=== PATIENT | male | born 1945 | race American Indian/Alaskan Native ===

== ENCOUNTER 2019-04-09 15:23 | Outpatient (CLI) | payer OTHER ==
--- NOTE | 2019-04-09 16:52 | Vascular Lab Report ---
DUPLEX DOPPLER LOWER EXTREMITY VEINS, LEFT INDICATION: M79.89) Other specified soft tissue disorders./M79.662)PAIN IN LO. TECHNIQUE: Duplex doppler imaging was performed through the veins of the left lower extremity using venous compr ession and other maneuvers. COMPARISON: None available. FINDINGS: Common Femoral vein: Negative. Superficial Femoral vein: Negative. Popliteal vein: Negative. Calf veins: Negative. Additional findings: The left arterial bypass graft appears to be occluded. IMPRESSION: 1. No sonographic evidence for DVT in the left lower extremity. Occluded bypass graft. Signer Name: Spike Grant MD Signed: 04/09/2019 4:47 PM Workstation Name: [id number]
== END 2019-04-09 15:24 | disposition home or self-care (01) ==
LOC: VAS 15:23
PROVIDERS: ATTEND Podiatrist Foot & Ankle Surgery
DX: M79.662 Pain in left lower leg (principal); R22.42 Localized swelling, mass and lump, left lower limb

== ENCOUNTER 2021-10-05 09:51 | Emergency (ER) | payer OTHER ==
[2021-10-05] MEDS ORDERED: IBUPROFEN 800 MG TAB PO ONE (10:34)
--- NOTE | 2021-10-05 10:55 | XRay Report ---
RIGHT SHOULDER 3 VIEWS INDICATION: pain sp fall. COMPARISON: None. IMPRESSION: Anterior, inferior dislocation is present at the glenohumeral joint. No obvious fracture . Moderate osteoarthritic changes are noted. RIGHT HUMERUS 2 VIEWS INDICATION: pain sp fall. COMPARISON: None. IMPRESSION: Dislocation at the right shoulder is again noted. No acute humeral injury is appreciate d. Signer Name: Bharathi Rosado Jr, MD Signed: 10/05/2021 10:50 AM Workstation Name: [id number]
--- NOTE | 2021-10-05 10:57 | Event Note ---
ED Screening Note ED Screening Note: sp fall in garage last night This initial assessment/diagnostic orders/clinical plan/treatment(s) is/are s ubject to change based on patients health status, clinical progression and re- assessment by fellow clinical providers in the ED. Further treatment and workup at subsequent clinical providers discretion. Patient/guardian urged not to elope from the ED as their condition may be serious if not clinically assessed and managed. Initial orders include: xr
[2021-10-05] MEDS ORDERED: ONDANSETRON 4 MG/2 ML INJ IV ONE (11:45)
[2021-10-05] MEDS ORDERED: fentaNYL 100 MCG/2 ML INJ IV ONE (11:45)
[2021-10-05] MEDS ORDERED: propofoL 200 MG/20 ML VIAL IV ONE (12:12)
[2021-10-05] MEDS ORDERED: KETAMINE 500 MG/5 ML VIAL MDV IV ONE (12:12)
--- NOTE | 2021-10-05 12:13 | Emergency Department Report ---
ED Upper Extremity Inj HPI - General Chief Complaint: Extremity Injury, Upper Stated Complaint: FELL HURT LF SHOULDER Time Seen by Provider: 10/05/21 10:19 Source: patient Mode of arrival: Ambulatory Limitations: No Limitations - History of Present Illness Initial Comments: 76-year-old male with a past medical history of hypertension (intimately complia nt with medication), DVT currently on Coumadin, hepatitis B, previous appendectomy presents to the hospital complaining of pain to right shoulder since fall last night. Patient tripped and fell in his garage landing with his right shoulder. Patient had pain and deformity limited movement since. Pain is currently 10/10 intensity, constant, worse movement palpation. Patient is right-hand dominant. Patient denies previous adverse reaction to sedative during surgery. Patient does not endorse head injury or LOC. HE does admit to alcohol intake last night - Related Data Home Medications Medication Instructions Recorded Confirmed Last Taken Ibuprofen/Diphenhydramine HCl 1 each PO PRN PRN 04/27/13 04/27/13 04/26/13 [Advil Pm Liqui-Gels] Previous Rx's Medication Instructions Recorded Last Taken Type HYDROcodone/APAP 5-325 [[place] 2 each PO Q6H PRN #40 tablet 04/28/13 Unknown Rx 5-325 mg TAB] HYDROcodone/APAP 5-325 [[place] 1 each PO Q6HR PRN #15 tablet 10/05/21 Unknown Rx 5/325] Allergies Allergy/AdvReac Type Severity Reaction Status Date / Time No Known Allergies Allergy Verified 10/05/21 10:15 ED Review of Systems ROS: Stated complaint: FELL HURT LF SHOULDER Other details as noted in HPI Comment: All other systems reviewed and negative ED Past Medical Hx - Past Medical History Hx Hypertension: Yes (not on meds) Hx Diabetes: No Hx Liver Disease: Yes (h/o hepatitis b) - Social History Smoking Status: Current Every Day Smoker - Medications Home Medications: Home Medications Medication Instructions Recorded Confirmed Last Taken Type Ibuprofen/Diphenhydramine HCl 1 each PO PRN PRN 04/27/13 04/27/13 04/26/13 History [Advil Pm Liqui-Gels] HYDROcodone/APAP 5-325 [[place] 2 each PO Q6H PRN #40 tablet 04/28/13 Unknown Rx 5-325 mg TAB] HYDROcodone/APAP 5-325 [[place] 1 each PO Q6HR PRN #15 tablet 10/05/21 Unknown Rx 5/325] ED Physical Exam - General Limitations: No Limitations - Other Other exam information: General: No acute distress Head: Atraumatic Eyes: normal appearance ENT: Moist mucous membranes Neck: Normal appearance, no midline tenderness Chest: Clear to auscultation bilaterally CV: Regular rate and rhythm Abdomen: Soft, normal bowel sounds, nontender, nondistended, no rebound or guarding Back: Normal inspection Extremity: Right arm deformity, limited movement, sensation intact, 2+ radial pulse Neuro: Alert O x 3, no facial asymmetry, speech clear, no gross motor sensory deficit Psych: Appropriate behavior Skin: No rash ED Course Vital Signs 10/05/21 10/05/21 10/05/21 10:21 13:00 13:35 Temperature 98.1 F Temperature [ Intra-Procedure ] Temperature [ 98.0 F Pre-Procedure] Pulse Rate 91 H Pulse Rate [ 94 H Intra-Procedure ] Pulse Rate [Pre 86 -Procedure] Respiratory 20 Rate Respiratory 8 L Rate [Intra- Procedure] Respiratory 18 Rate [Pre- Procedure] Blood Pressure 173/98 Blood Pressure 200/100 [Intra- Procedure] Blood Pressure [Left] Blood Pressure 165/105 [Pre-Procedure] O2 Sat by Pulse 95 Oximetry O2 Sat by Pulse 100 Oximetry [ Intra-Procedure ] O2 Sat by Pulse 100 Oximetry [Pre- Procedure] 10/05/21 10/05/21 10/05/21 13:55 14:04 14:18 Temperature Temperature [ 98.0 F Intra-Procedure ] Temperature [ 98.0 F Pre-Procedure] Pulse Rate Pulse Rate [ 88 94 H 92 H Intra-Procedure ] Pulse Rate [Pre 92 H -Procedure] Respiratory Rate Respiratory 12 8 L 11 L Rate [Intra- Procedure] Respiratory 11 L Rate [Pre- Procedure] Blood Pressure Blood Pressure 187/86 230/133 230/106 [Intra- Procedure] Blood Pressure [Left] Blood Pressure 203/114 [Pre-Procedure] O2 Sat by Pulse Oximetry O2 Sat by Pulse 99 98 Oximetry [ Intra-Procedure ] O2 Sat by Pulse 97 Oximetry [Pre- Procedure] 10/05/21 10/05/21 15:06 15:09 Temperature 98.6 F Temperature [ Intra-Procedure ] Temperature [ Pre-Procedure] Pulse Rate 88 Pulse Rate [ Intra-Procedure ] Pulse Rate [Pre -Procedure] Respiratory 18 Rate Respiratory Rate [Intra- Procedure] Respiratory Rate [Pre- Procedure] Blood Pressure Blood Pressure [Intra- Procedure] Blood Pressure 180/96 [Left] Blood Pressure [Pre-Procedure] O2 Sat by Pulse 99 100 Oximetry O2 Sat by Pulse Oximetry [ Intra-Procedure ] O2 Sat by Pulse Oximetry [Pre- Procedure] - Reevaluation(s) Reevaluation #1: 10/05/21 14:42 pain improved after reduction 10/05/21 14:55 Patient ready for discharge however, he does not have anyone to pick him up at this time after receiving moderate sedation. Patient can be safely discharged at 5 PM. Can be discharged sooner if he is able to secure a ride home - Moderate Sedation ASA Class: II Mallampati Airway Score: 2 Time of Last PO Intake: 20:00 (yesterday) Preparation: panel monitor applied, pulse oximeter, capnometry used, supple mental O2 applied, suction/airway equipment at bedside, IV secured Ketamine: IV Ketamine Dose: 40 IV Propofol Dose (mgs): 40 Complications: none Interventions: oxygen applied Patient Tolerated Procedure: well - Orthopedic Joint Reduction Joint #1 Consent Obtained: written consent Time Out Performed: Yes Side: right Joint Reduction Location: shoulder Analgesia: moderate sedation Shoulder Technique Used (if applicable): traction/counter-traction Technique Used: traction/counter-traction Post-Reduction Neuro Exam: intact Post-Reduction Vascular Exam: intact Post Reduction X-Ray Obtained: Yes Post Reduction X-Ray Results: reduced Splint Applied: Yes Patient Tolerated Procedure: well ED Medical Decision Making - Radiology Data Radiology results: report reviewed RIGHT SHOULDER 3 VIEWS INDICATION: pain sp fall. COMPARISON: None. IMPRESSION: Anterior, inferior dislocation is present at the glenohumeral joint. No obvious fracture. Moderate osteoarthritic changes are noted. RIGHT HUMERUS 2 VIEWS INDICATION: pain sp fall. COMPARISON: None. IMPRESSION: Dislocation at the right shoulder is again noted. No acute humeral injury is appreciated. Right shoulder, single view. HISTORY: Postreduction COMPARISON: 10/05/2021 at 10:32 AM. FINDINGS: Single provided frontal view demonstrates successful reduction of the right glenohumeral joint. The humeral head is high riding, nearly abutting the undersurface of the distal acromion, compatible with chronic rotator cuff insufficiency. Right AC joint is intact with moderate degenerative arthrosis. No acute fracture is identified. IMPRESSION: Successful reduction of right shoulder dislocation. - Medical Decision Making 76-year-old male presents to the hospital with right shoulder dislocation. Successful reduction after moderate sedation. BP did increase after ketamine and propofol but returned back to pretreatment levels. Patient has chronic hypertension and does not endorse headache or chest pain and admits to intermittent compliance with medication. Patient states he does have blood pressure medicine at home. He was encouraged to take his medication as pres cribed and follow-up with PMD. Right shoulder immobilizer placed and patient encouraged to follow-up with orthopedic Critical Care Time: No Critical care attestation.: If time is entered above; I have spent that time in minutes in the direct care of this critically ill patient, excluding procedure time. ED Disposition Clinical Impression: Anterior dislocation of right shoulder, Hypertension, Non compliance w medication regimen Disposition: 01 HOME / SELF CARE / HOMELESS Is pt being admited?: No Does the pt Need Aspirin: No Condition: Stable Instructions: Shoulder Dislocation, Hypertension, Adult, [id number], Moderate Conscious Sedation, Adult, Care After, Hypertension (ED) Additional Instructions: Take the medication as prescribed. Follow-up with your doctor or doctor/clinic provided. Return if symptoms worsen as indicated by your discharge instructions. Prescriptions: HYDROcodone/APAP 5-325 [[place] 5/325] 1 each PO Q6HR PRN #15 tablet PRN Reason: Pain Referrals: PRIMARY CARE, [Primary Care Provider] - 3-5 Days ARSH JAQUEZ MD [Staff Physician] - 3-5 Days OZIEL RUIZ MD [Staff Physician] - 3-5 Days (Primary care doc)
[2021-10-05] MEDS ORDERED: SODIUM CHLORIDE 0.9% 1000 ML 1,000 ML ONE (12:53)
--- NOTE | 2021-10-05 14:28 | XRay Report ---
Right shoulder, single view. HISTORY: Postreduction COMPARISON: 10/05/2021 at 10:32 AM. FINDINGS: Single provided frontal view demonstrates successful reduction of the right glenohumeral abilio int. The humeral head is high riding, nearly abutting the undersurface of the distal acromion, compat ible with chronic rotator cuff insufficiency. Right AC joint is intact with moderate degenerative art hrosis. No acute fracture is identified. IMPRESSION: Successful reduction of right shoulder dislocation. Signer Name: Spike Guzman MD Signed: 10/05/2021 2:24 PM Workstation Name: [id number]
[2021-10-05 17:08] VITALS: BP 159/100
== END 2021-10-05 17:07 | disposition home or self-care (01) ==
LOC: ED 09:51
DX: S43.004A Unspecified dislocation of right shoulder joint, initial encounter (principal); I10 Essential (primary) hypertension; Z91.14 Patient's other noncompliance with medication regimen; X58.XXXA Exposure to other specified factors, initial encounter; Y93.89 Activity, other specified; Y92.89 Other specified places as the place of occurrence of the external cause; Y99.8 Other external cause status
CPT/HCPCS: 23650; 73020; 73030; 73060; 96374; 96375; 99283; J2405; J2704; J3010; J3490; J7030; J7120; Q0162